=== PATIENT | male | born 1980 | race African-American/Black ===

== ENCOUNTER 2018-01-24 20:58 | Emergency (ER) | payer OTHER ==
[2018-01-24 22:28] VITALS: BP 142/78
[2018-01-24] MEDS ORDERED: KEFLEX500 M1 PO (22:29)
--- NOTE | 2018-01-24 22:29 | ED HAND/WRIST INJURY COMPLAINT ---
History of Present Illness General Chief Complaint: Laceration Procedure Stated Complaint: LAC TO FINGER Source: patient Exam Limitations: no limitations Vital Signs & Intake/Output Vital Signs & Intake/Output Vital Signs Date Time Temp Pulse Resp B/P B/P Pulse O2 O2 Flow FiO2 Mean Ox Delivery Rate 01/25 2228 96.7 89 18 142/78 97 Room Air 01/24 2105 98.7 99 22 157/109 100 Allergies Coded Allergies: No Known Allergies (01/24/18) Reconcile Medications Cephalexin (Keflex) 500 MG CAPSULE 1 CAP PO TID CELLULITIS PPX Triage Note: PER PT LAC TO L THUMB WITH KNIFE BLEEDING PROFUSELY UNABLE TO SEE LAC BLOOD SOAKED GUAZE IN PLACE UNSURE OF TETANUS Triage Nurses Notes Reviewed? yes Occurred: just prior to arrival Duration: day(s): (1), constant, continues in ED Timing: single episode today Injury Environment: home Severity: mild, moderate Severity Numbers: 6 Pain/Injury Location: Left: 1st finger. Context: laceration Method of Injury: laceration No Modifying Factors: none HPI: 37-year-old male with no past medical history presents for evaluation of a laceration to his left thumb. Patient states he was cutting meat when I slipped cutting the very tip of his thumb off. There is no damage to the nail. He does not take blood thinners reports very large amount of bleeding. No numbness or tingling no lightheadedness or dizziness no chest pain shortness of breath. No other injuries. He is up-to-date on tetanus. (Neo Tee) Past History Travel History Traveled to [place] past 21 day No Medical History Any Pertinent Medical History? see below for history Neurological: NONE EENT: NONE Cardiovascular: NONE Respiratory: NONE Gastrointestinal: NONE Hepatic: NONE Renal: NONE Musculoskeletal: NONE Psychiatric: NONE Endocrine: NONE Surgical History Surgical History: non-contributory Psychosocial History What is your primary language Mauritian Tobacco Use: Never used Family History Hx Contributory? No (Neo Tee) Review of Systems Review of Systems Constitutional: Reports: no symptoms. EENTM: Reports: no symptoms. Respiratory: Reports: no symptoms. Cardiovascular: Reports: no symptoms. GI: Reports: no symptoms. Genitourinary: Reports: no symptoms. Musculoskeletal: Reports: no symptoms. Skin: Reports: see HPI (laceration). Neurological/Psychological: Reports: no symptoms. Hematologic/Endocrine: Reports: no symptoms. Immunologic/Allergic: Reports: no symptoms. All Other Systems: Reviewed and Negative (Neo Tee) Physical Exam Physical Exam General Appearance: well developed/nourished, no apparent distress, alert, awake Head: atraumatic, normal appearance Eyes: Bilateral: normal appearance, EOMI. Ears, Nose, Throat: hearing grossly normal Neck: normal inspection, supple, full range of motion Cardiovascular/Respiratory: no respiratory distress Back: normal inspection, normal range of motion Elbow Left: normal range of motion, normal inspection Elbow Right: normal range of motion, normal inspection Forearm Left: normal range of motion, normal inspection Forearm Right: normal range of motion, normal inspection Wrist Left: normal range of motion, normal inspection Wrist Right: normal range of motion, normal inspection Hand Left: lacerations, 1st finger, there is an avulsion injury to the distal segment of the left thumb. No damage to the nail. Large amount of active bleeding. Full range of motion of the thumb is intact neurovascular supply intact Hand Right: normal inspection, normal range of motion Neurologic/Tendon: normal sensation, normal motor functions, normal tendon functions, responds to pain, no evidence tendon injury, no pulse deficit Skin: intact, normal color, warm/dry (Neo Tee) Progress Differential Diagnosis: contusion, dislocation, fracture, sprain, tenosynovitis, avulsion Plan of Care: Patient is here with an avulsion to the distal segment of the left thumb. No damage to the nail. There is nothing to suture. Patient is bleeding heavily from the area. kalostat and gauze was placed over the wound. Patient was monitored for any signs of rebleeding and good hemostasis was obtained. There is no additional bleeding after 45 minutes. Advised patient to keep the wound covered for 2 days return for wound check at that time. Patient will be covered with cephalexin. He is up-to-date on tetanus. Tylenol or ibuProfen for pain discussed return precautions patient agrees with the plan. (Neo Tee) Departure Departure Disposition: HOME OR SELF CARE Condition: Stable Clinical Impression Primary Impression: Finger avulsion Qualifiers: Encounter type: initial encounter Qualified Code: S61.209A - Unspecified open wound of unspecified finger without damage to nail, initial encounter Referrals: Maury BAILEY,Georgina Goyal (PCP/Family) Additional Instructions: Keep the area clean and dry. Take antibiotics as directed for the full course. Tylenol and Advil for pain. Keep the dressing on for 2 days then return for a wound check. If there is additional bleeding apply pressure keep it elevated and apply additional gauze try not to remove the dressing. If there is still additional bleeding YOU cannot control return to the ER immediately. Departure Forms: Customer Survey General Discharge Information Prescriptions: Current Visit Scripts Cephalexin (Keflex) 1 CAP PO TID #21 CAP (Neo Tee) PA/PROFESSIONAL BUILDER Co-Sign Statement Statement: ED Attending supervision documentation- I saw and evaluated the patient. I have also reviewed all the pertinent lab results and diagnostic results. I agree with the findings and the plan of care as documented in the PA's/PROFESSIONAL BUILDER's documentation. x I have reviewed the ED Record and agree with the PA's/PROFESSIONAL BUILDER's documentation. [] Additions or exceptions (if any) to the PAs/PROFESSIONAL BUILDER's note and plan are summarized below: [] (Dolores BAILEY,Leodan)
== END 2018-01-24 22:47 ==
LOC: ERH 20:58
DX: S61.012A Laceration without foreign body of left thumb without damage to nail, initial encounter (principal); W45.8XXA Other foreign body or object entering through skin, initial encounter; Y92.9 Unspecified place or not applicable; Y93.9 Activity, unspecified